=== PATIENT | female | born 1950 | race Caucasian/White ===

== ENCOUNTER → 2023-11-02 13:30 | Outpatient (REF) | payer MEDICARE, OTHER, SELFPAY ==
[2023-11-02 14:39] LABS: ALT (SGPT) 16 U/L (0-35); AST (SGOT) 34 U/L (14-36); Alkaline Phosphatase 69 U/L (38-126); Blood Urea Nitrogen 13 mg/dl (7-17); Calcium 9.2 mg/dl (8.4-10.2); Carbon Dioxide 29 mmol/L (22-30); Chloride 101 mmol/L (98-107); Glucose 90 mg/dl (70-99); HDL Cholesterol 90 mg/dl; LDL Cholesterol, Calculated 104 mg/dl; Potassium 4.3 mmol/L (3.5-5.1); Sodium 134 mmol/L (135-145); Total Bilirubin 0.9 mg/dl (0.2-1.3); Total Cholesterol 206 mg/dl (50-199); Total Protein 6.7 g/dl (6.3-8.2); Triglyceride 61 mg/dl (10-149); Very Low Density Lipoprotein 12 mg/dl (0-30); eGFR > 60.00
[2023-11-02 15:09] LABS: TSH Reflex To Free T4 2.58 uIU/ml (0.47-4.68)
== END ==
LOC: REG 13:30
PROVIDERS: ATTENDING PHYSICIAN Family Medicine
DX: E03.9 Hypothyroidism, unspecified (principal); I10 Essential (primary) hypertension; E78.00 Pure hypercholesterolemia, unspecified
CPT/HCPCS: 36415; 80053; 80061; 84443

== ENCOUNTER → 2023-11-04 14:03 | Outpatient (REF) | payer MEDICARE, OTHER, SELFPAY ==
[2023-11-04 14:42] LABS: % Basophils 1.6 % (0-2); % Immature Granulocytes 0.2 % (0-0.5); % Lymphocytes 33.5 % (20.5-51.1); % Monocytes 12.4 % (1.7-9.3); % Neutrophils 47.3 % (42.2-75.2); Absolute Basophils 0.1 10^3/uL (0-0.2); Absolute Eosinophils 0.3 10^3/uL (0-0.7); Absolute Lymphocytes 1.7 10^3/uL (1.2-3.4); Absolute Monocytes 0.6 10^3/uL (0.1-0.6); Absolute Neutrophils 2.4 10^3/uL (1.4-6.5); Hematocrit 37.3 % (37.0-47.0); Hemoglobin 12.3 g/dL (12.0-16.0); Mean Corpuscular Hgb 30.6 pg (27.0-31.0); Mean Corpuscular Volume 92.8 fL (81.0-99.0); Mean Platelet Volume 9.9 fL (7.4-10.4); Nucleated Red Blood Cells % 0 %; Platelet Count 249 10^3/uL (130-400); Red Blood Cell Count 4.02 10^6/uL (4.20-5.40); Red Cell Dist. Width 14.5 % (11.5-14.5)
[2023-11-04 15:02] LABS: Erythrocyte Sed Rate 4 mm/hour (0-20)
== END ==
LOC: REG 14:03
PROVIDERS: ATTENDING PHYSICIAN Family Medicine
DX: M25.511 Pain in right shoulder (principal); M25.512 Pain in left shoulder; D50.8 Other iron deficiency anemias; M25.50 Pain in unspecified joint
CPT/HCPCS: 36415; 73030; 85025; 85652; 86140

== ENCOUNTER → 2023-11-07 19:05 | Outpatient (REF) | payer MEDICARE, OTHER, SELFPAY | LOC: WDC 19:05 | PROVIDERS: ATTENDING PHYSICIAN Family Medicine | DX: Z12.31 Encounter for screening mammogram for malignant neoplasm of breast (principal) | CPT/HCPCS: 77063; 77067 ==

== ENCOUNTER → 2023-12-08 13:08 | Outpatient (REF) | payer MEDICARE, OTHER, SELFPAY | LOC: RAD 13:08 | PROVIDERS: ATTENDING PHYSICIAN Physician Assistant | DX: K59.00 Constipation, unspecified (principal); R07.81 Pleurodynia | CPT/HCPCS: 71046; 74019 ==

== ENCOUNTER → 2025-03-11 13:08 | Outpatient (REF) | payer MEDICARE, OTHER, SELFPAY ==
[2025-03-11 15:17] LABS: ALT (SGPT) 15 U/L (0-35); AST (SGOT) 29 U/L (14-36); Albumin 4.1 g/dl (3.5-5.0); Alkaline Phosphatase 61 U/L (38-126); Blood Urea Nitrogen 11 mg/dl (7-17); Calcium 9.3 mg/dl (8.4-10.2); Carbon Dioxide 27 mmol/L (22-30); Chloride 106 mmol/L (98-107); Glucose 85 mg/dl (70-99); HDL Cholesterol 80 mg/dl; LDL Cholesterol, Calculated 112 mg/dl; Potassium 3.9 mmol/L (3.5-5.1); Sodium 140 mmol/L (135-145); Total Bilirubin 0.8 mg/dl (0.2-1.3); Total Cholesterol 203 mg/dl (50-199); Total Protein 6.8 g/dl (6.3-8.2); Triglyceride 59 mg/dl (10-149); Very Low Density Lipoprotein 11 mg/dl (0-30); eGFR > 60.00
== END ==
LOC: REG 13:08
PROVIDERS: ATTENDING PHYSICIAN Family Medicine
DX: E78.00 Pure hypercholesterolemia, unspecified (principal); I10 Essential (primary) hypertension; R79.9 Abnormal finding of blood chemistry, unspecified; D50.8 Other iron deficiency anemias
CPT/HCPCS: 36415; 80053; 80061

== ENCOUNTER → 2025-05-09 15:23 | Outpatient (REF) | payer MEDICARE, OTHER, SELFPAY | LOC: REG 15:23 | PROVIDERS: ATTENDING PHYSICIAN Family Medicine | DX: E03.9 Hypothyroidism, unspecified (principal) | CPT/HCPCS: 36415; 84443 ==

== ENCOUNTER → 2025-06-07 13:57 | Outpatient (REF) | payer MEDICARE, OTHER, SELFPAY | LOC: RAD 13:57 | PROVIDERS: ATTENDING PHYSICIAN Nurse Practitioner Family; FAMILY PHYSICIAN Family Medicine | DX: M54.16 Radiculopathy, lumbar region (principal) | CPT/HCPCS: 72110 ==

== ENCOUNTER 2025-06-16 05:36 | Emergency (ER) | payer MEDICARE, OTHER, SELFPAY ==
[2025-06-16 05:37] VITALS: BP 166/86
[2025-06-16 05:53] VITALS: BMI 24.4
[2025-06-16 07:55] VITALS: BP 116/77
--- NOTE | 2025-06-16 08:08 | EDRN ---
Ramy GOULD in room w/ pt at this time.
--- NOTE | 2025-06-16 08:11 | ED.GENMED ---
History of Present Illness
General
Chief Complaint: Back Pain
Source: patient
Exam Limitations: none
Time Seen by Provider: 06/16/25 08:00
Nursing documentation reviewed up to this point in time: agreed with
History of Present Illness
History of Present Illness:
pt is a 75-year-old female with a history of hypertension and hypothyroidism presents for right sided buttock pain shooting down her right leg over the last 2 weeks. Patient had no initiating trauma or lifting or prolonged sitting. She says she
has never had anything like this before this began.
She went to her primary care doctor around 9�5 and had imaging order for lumbar spine x-ray which she did have but she does not know what the results. She was also given a Medrol Dosepak, muscle relaxers which did not help. She completed this and
ended up calling the office yesterday and was called in tramadol, told to take 25 mg twice a day, she is taken 3 doses without any relief. Patient says she cannot sit and changing position is very uncomfortable. She also has been constipated over
the last week or so prior to the use of the tramadol and she used an [id number] stool softener as well as 1 dose of Dulcolax and did a bowel movement 2 days ago but she says it was a little bit difficult. She does not normally get
constipated. Patient's not sleeping very well, she feels better up and standing rather than sitting or laying. She has no reported numbness or tingling in her leg, there is no weakness, there is no bowel or bladder incontinence or perineal
anesthesia. There is no fevers or urinary discomfort, frequency etc.
Past History
Past History
ED Past Medical History: HTN and Hypothyroidism
ED Past Surgical History: None and Other (Scar tissue removed from right breast)
Patient has exhibited threatening behavior?: No
PSI?: No
Social History
Tobacco: Non-smoker
Alcohol: None
Drug: None
Employment: Retired
Review of Systems
Review of Systems
Allergies reviewed?: Yes
All Other Systems: Not applicable
Phy Exam
Physical Exam
Physical Exam:
GENERAL: Alert , pacing, anxious
HEAD: NCAT
NECK: no midline tenderness, active ROM intact, no paraspinal muscle tenderness;
CARDIAC: Regular rate and rhythm, no edema
LUNGS: Clear breath sounds bilaterally, no acute respiratory distress, no wheezes/rales/rhonchi
ABDOMEN: Soft, without focal tenderness, no r/g, no cvat, normal bowel sounds, nondistended
NEUROLOGICAL: Alert and oriented, no focal neuro deficits, CN intact, 5/5 strength, sensation intact, ambulation slight limp left leg
SKIN: Warm and dry,
MUSCULOSKELETAL: No edema, well perfused. Normal inspection of the right hip, right leg
Patient has no tenderness to palpation of the hip, no exact SI joint tenderness, she has some tenderness posteriorly in the hip and low buttocks region without any skin changes.
He has no pain with flexion of the left hip, external rotation, but with internal rotation has discomfort
The most discomfort the patient had was with internal and external rotation of the hip with hip flexed
Back: No midline tenderness, no paraspinal muscle tenderness, patient had a difficult time actually cooperating with straight leg raise because she was assisting the examiner but seem to have no radicular symptoms
negative straight leg raise Bilaterally
Knees normal
PSYCH: Normal and appropriate interaction.
Course
Orders/Labs/Results
Orders:
Orders
06/16/25 08:24
HYDROmorphone [Dilaudid] 0.25 mg IV NOW STA
Ketorolac [Toradol] 15 mg IV NOW STA
Hip, Right 2-3 Views [CR Hip - RT w/wo Pel 2-3 Vw*] Urgent
Comment:
Reason For Exam: R SI and hip pain
Include a pelvis x-ray?: Yes
Obstruct Series W/PA Chest [CR Obstruct Series W/pa Chest] Urgent
Comment:
Reason For Exam: constipation
06/16/25 08:33
Complete Blood Count/With Diff Urgent
06/16/25 09:12
Comprehensive Metabolic Panel Urgent
06/16/25 10:06
Hydrocodone 5/APAP 325 [[place] 5/325] 1 tablet PO NOW STA
Abnormal Lab Results
06/16/25 06/16/25
08:33 09:12
Absolute Monos (auto) 0.7 H 10^3/uL
(0.1-0.6)
Immature Gran % 0.6 H %
(0-0.5)
Monocytes % 9.9 H %
(1.7-9.3)
Chloride 109 H mmol/L
(98-107)
BUN 23 H mg/dl
(7-17)
06/16/25 08:33
06/16/25 09:12
Vital Signs
Initial and Last Documented VS:
Initial Vital Signs
Temp Pulse Resp BP Pulse Ox
36.3 C 78 26 166/86 98
06/16/25 05:37 06/16/25 05:37 06/16/25 05:37 06/16/25 05:37 06/16/25 05:37
Last Documented Vital Signs
Temp Pulse Resp BP Pulse Ox
36.3 C 62 16 122/65 92
06/16/25 05:37 06/16/25 10:00 06/16/25 10:00 06/16/25 10:00 06/16/25 10:00
MDM/Problems Addressed
Differential Diagnosis Includes:
Constipation, sciatica, hip bursitis, arthritis, radiculopathy
MDM/Problems Addressed:
75-year-old female with a history of hypertension and hypothyroidism presents for 2 weeks of right sided buttock pain radiating down the back of her right leg to her ankle at times. She has a lot of pain with sitting and changing position. She is
able to have relief of pain with standing and walking, saying that most of her pain is overnight and while lying down and early in the morning but when she gets moving it feels much better. She saw her family doctor 2 weeks ago and was given a
prescription for an x-ray which she had of her lumbar spine showing L5-S1 degenerative disc disease and anterolisthesis of L5 on S1. She was given a Medrol Dosepak and a muscle relaxer had no relief from that and yesterday called the family doctor
and was given tramadol which she took 3 total tablets of 25 mg without relief.
She has also been constipated but was able to move her bowels after dose of Dulcolax.
On exam she is quite anxious, standing and pacing in the room, she seems to have most discomfort with seated position and full flexion of her right hip with internal/external rotation. She has not overly tender in her SI joint and more has
tenderness at the top of her hamstring
Patient had negative straight leg raise, normal strength and sensation and no signs of cauda equina syndrome.
Her abdomen is soft and nontender.
I do believe she has pain from musculoskeletal cause like sciatica
I did offer her another round of steroids but at a higher dose which she declined. She has no contraindications to taking short course of NSAIDs so she would prefer to do that.
I did give her IV Toradol and Dilaudid here with a low dose of the Dilaudid which did not seem to affect her adversely however she still in some pain with full flexion of her hip.
X-rays of her hip and abdomen were independently reviewed by me and negative for any fracture, she does not have significant DJD. She does have moderate stool in her colon without obstruction.
I will recommend MiraLAX twice daily for 2 to 3 days for that especially while she is on opiate. Increase her to Vicodin every 6 as needed, lidocaine patches and NSAIDs.
Patient already has an outpatient prescription for physical therapy
despite saing she had difficulty getting up even after shaista meds, i watched her stand and she was up easily without obvious discomfort; i do feel that she is improved enough to trial outpatietn home
*Pulse Oximetry
SaO2: 100
Oxygen Mode of Delivery: Room air
Patient hypoxic: no
*Critical Care Note
Total Time (30-74mins, 75-104mins- exclusive of procedures): Not Applicable
ED Attending Note
-
Portions of this chart may have been created with voice recognition software.� Occasional wrong word or��sound alike� substitutions may have occurred due to the inherent limitations of voice recognition software.
Discharge Plan
Departure
Patient Disposition: Home (Routine Discharge)
Date of Disposition: 06/16/25
Time of Disposition: 10:48
Patient with high blood pressure during this ER visit?: No
Condition: Fair
Discharge Problem:
Sciatica
Instructions: Sciatica (DC)
Prescriptions:
New
naproxen sodium 275 mg tablet
275 mg PO BID Qty: 10 0RF
hydrocodone-acetaminophen 5-325 mg tablet
1 tab PO Q8H PRN (Reason: Pain) Qty: 12 0RF
lidocaine 5 % adhesive patch,medicated
1 patch topical DAILY PRN (Reason: PAIN) Qty: 15 0RF
No Action
alendronate 70 mg Tablet
70 mg PO QWEEK
amlodipine 10 mg Tablet
10 mg PO HS
levothyroxine [Euthyrox] 50 mcg Tablet
50 mcg PO DAILY
lisinopril 40 mg Tablet
40 mg PO HS
cranberry fruit 400 mg Capsule
400 mg PO DAILY
aspirin 81 mg Tablet
81 mg PO DAILY
Multivitamin Women 50 Plus 8 mg iron-400 mcg-300 mcg Tablet
1 tab PO DAILY
biotin 1 mg Capsule
1 mg PO DAILY
naproxen sodium [Aleve] 220 mg capsule
440 mg PO BID PRN (Reason: pain) 7 Days Qty: 14 0RF
acetaminophen [Acetaminophen Extra Strength] 500 mg tablet
500 mg PO Q6H PRN (Reason: pain) Qty: 10 0RF
Referrals:
Rea Keating MD [Family Provider, [facility]] - Follow up in 2-3 days
Activity Restrictions/Additional Instructions:
Your back and hip pain is probably from SI joint inflammation causing some sciatic nerve pain. Try Aleve twice a day with food for 3 to 5 days in a row to help with inflammation. Additionally for pain you can take Vicodin which has Tylenol in it
every 8 hours, that is 3 times a day. No drinking or driving on this medication. He can make you sleepy. You can also increase constipation so you should try MiraLAX twice a day for 2 to 3 days to help with your constipation. Your x-rays did not
show any significant findings but if the radiologist disagrees we will call you with results. You should follow-up with family doctor for physical therapy
Return for leg weakness, leg numbness, incontinence, fever or chills, inability to walk, swelling or redness to your hip or any concern
Also you can apply lidocaine patch to your back or buttocks and leave on for 12 hours, remove for 12 hours and when the patch is off you can use heat or ice
Interventions
Interventions:
*Risk Screen - Suicide Last Done: 06/16/25 05:37
*General Assessment Last Done: 06/16/25 05:53
*Neglect/Abuse Screening Last Done: 06/16/25 05:37
*ED- Fall Risk Assessment Last Done: 06/16/25 05:53
*ED COVID-19 Vaccine History Last Done: 06/16/25 05:53
*Nursing Disposition Last Done: 06/16/25 11:07
ZH-Adtkxx-Nekybuhqai Assessment Last Done: 06/16/25 05:59
ED-Musculoskeletal Assessment Last Done: 06/16/25 05:53
Discharge Date and Time
Discharge Date/Time: 06/16/25 11:07
Print Language: SYRIAC
[2025-06-16 08:34] VITALS: BP 114/53
[2025-06-16] MEDS: DILAUDID 0.25 MG IV (08:37)
[2025-06-16] MEDS: TORADOL 15 MG IV (08:37)
[2025-06-16 08:44] LABS: Hematocrit 40.4 % (37.0-47.0); Hemoglobin 13.6 g/dL (12.0-16.0); Mean Corp Hgb Conc. 33.7 g/dL (33.0-37.0); Mean Corpuscular Volume 90.6 fL (81.0-99.0); Nucleated Red Blood Cells % 0 %; Platelet Count 269 10^3/uL (130-400); Red Cell Dist. Width 14.0 % (11.5-14.5)
[2025-06-16 09:14] VITALS: BP 135/62
--- NOTE | 2025-06-16 09:14 | EDRN ---
SST blood tube hemolyzed so redrawn and sent to lab at this time.
[2025-06-16 09:23] VITALS: BP 135/60
[2025-06-16 09:31] LABS: ALT (SGPT) 16 U/L (0-35); AST (SGOT) 28 U/L (14-36); Albumin 3.9 g/dl (3.5-5.0); Alkaline Phosphatase 53 U/L (38-126); Blood Urea Nitrogen 23 mg/dl (7-17); Calcium 9.0 mg/dl (8.4-10.2); Carbon Dioxide 28 mmol/L (22-30); Chloride 109 mmol/L (98-107); Estimated Creatinine Clearance 48 ml/min; Glucose 93 mg/dl (70-99); Potassium 4.0 mmol/L (3.5-5.1); Sodium 141 mmol/L (135-145); Total Protein 6.4 g/dl (6.3-8.2); eGFR > 60.00
[2025-06-16 10:00] VITALS: BP 122/65
--- NOTE | 2025-06-16 10:01 | EDRN ---
Ramy GOULD in room w/ pt at this time.
[2025-06-16] MEDS: NORCO 5/325 1 TABLET PO (10:22)
--- NOTE | 2025-06-16 10:59 | EDRN ---
Ramy GOULD in w/ pt at this time.
== END 2025-06-16 11:07 | disposition home or self-care (01) ==
LOC: EMR 05:36
PROVIDERS: Physician Assistant; EMERGENCY PHYSICIAN Emergency Medicine; FAMILY PHYSICIAN Family Medicine
DX: M54.31 Sciatica, right side (principal); K59.00 Constipation, unspecified; I10 Essential (primary) hypertension; E03.9 Hypothyroidism, unspecified; M51.379 Other intervertebral disc degeneration, lumbosacral region without mention of lumbar back pain or lower extremity pain; M43.17 Spondylolisthesis, lumbosacral region
CPT/HCPCS: 99284; 96374; 96375; 73502; 74022; 80053; 85025

== ENCOUNTER → 2025-06-20 13:39 | Outpatient (REF) | payer MEDICARE, OTHER, SELFPAY | LOC: RAD 13:39 | PROVIDERS: ATTENDING PHYSICIAN Nurse Practitioner Family; FAMILY PHYSICIAN Family Medicine | DX: M81.0 Age-related osteoporosis without current pathological fracture (principal) | CPT/HCPCS: 77080 ==

== ENCOUNTER 2025-07-19 23:00 | Emergency (ER) | payer MEDICARE, OTHER, SELFPAY ==
[2025-07-19 23:04] VITALS: BP 138/65
[2025-07-20 03:03] VITALS: BP 139/56; BMI 22.4
[2025-07-20] MEDS: PERCOCET 5/325 1 TABLET PO (04:03)
[2025-07-20] MEDS: TORADOL 30 MG IM (04:04)
[2025-07-20 04:05] VITALS: BP 132/86
--- NOTE | 2025-07-20 04:11 | ED.GENMED ---
History of Present Illness
General
Chief Complaint: Fall
Source: patient
Exam Limitations: none
Time Seen by Provider: 07/20/25 03:42
Nursing documentation reviewed up to this point in time: agreed with
History of Present Illness
History of Present Illness:
75-year-old female with history as noted presents to the ER for evaluation of rib and hip pain after a fall. Patient reports that she had a mechanical trip and fall this evening landing on her left side. She says she has had some pain in her left
ribs as well as in her left hip since the fall which prompted ER visit. She denies any head strike or loss of consciousness. Denies headache or neck pain. She denies back pain. She denies abdominal pain. She does have chronic pain in her right
leg from sciatica but no other acute issues today. She is not on any blood thinners.
Past History
Past History
ED Past Medical History: HTN and Hypothyroidism
ED Past Surgical History: None and Other (Scar tissue removed from right breast)
Patient has exhibited threatening behavior?: No
PSI?: No
Social History
Tobacco: Non-smoker
Alcohol: None
Drug: None
Employment: Retired
Review of Systems
Review of Systems
All Other Systems: ROS reviewed and negative except as documented in HPI and ROS
Respiratory: Denies trouble breathing
Cardiac: Reports chest pain
ABD/GI: Denies abdominal pain, nausea or vomiting
: Denies flank pain
Musculoskeletal: Reports joint pain; Denies neck pain or back pain
Neurological: Denies headache
Phy Exam
Physical Exam
Physical Exam:
General: Awake, alert, oriented x3; no acute distress
Head: Normocephalic, atraumatic
Eyes: Conjunctiva normal, pupils equal round reactive to light bilaterally
Throat: Airway intact, handling secretions
Neck: Trachea midline, no cervical spine tenderness
Back: No signs of trauma to the back or flank and no tenderness in the thoracic or lumbar spine
Lungs: Clear to auscultation bilaterally, no wheezing, rales, rhonchi
Heart: Regular rate and rhythm, no murmurs, gallops, or rubs; patient has some mild tenderness in the left anterior ribs but no crepitus or bruising
Abd: Soft, non distended, nontender
Neuro: Grossly intact, ambulatory here in the ER
Skin: Patient has mild ecchymosis to the left hip
Extremities: Patient has mild ecchymosis to the left lateral hip over the greater trochanter and mild tenderness in this area but full passive range of motion with minimal pain, no tenderness of the lower leg and the left, rest extremities appear
atraumatic
Scores
Heart Failure Risk
Heart Failure Risk Score: Not Applicable
Heart Score for Chest Pain Patients
STEMI patient?: Not applicable
Withdrawal Assessment of Alcohol
Withdrawal Assessment Completed?: Not applicable
Course
Orders/Labs/Results
Orders:
Orders
07/19/25 23:11
CR Ribs-left 3 Vw W/pa Chest Urgent
Comment:
Reason For Exam: injury
Femur, Left 2 View [CR Femur - Left Min 2 Vw] Urgent
Comment:
Reason For Exam: injury
07/20/25 03:58
Ketorolac [Toradol] 30 mg IM NOW STA
Oxycodone/Acetaminophen [Percocet 5/325] 1 tablet PO NOW STA
Vital Signs
Initial and Last Documented VS:
Initial Vital Signs
Temp Pulse Resp BP Pulse Ox
36.5 C 71 20 138/65 97
07/19/25 23:04 07/19/25 23:04 07/19/25 23:04 07/19/25 23:04 07/19/25 23:04
Last Documented Vital Signs
Temp Pulse Resp BP Pulse Ox
36.6 C 66 16 139/56 99
07/20/25 03:03 07/20/25 03:03 07/20/25 03:03 07/20/25 03:03 07/20/25 03:03
MDM/Problems Addressed
Differential Diagnosis Includes:
Rib pain: Bruised ribs, broken ribs, hemothorax, pneumothorax
Hip pain: Contusion, fracture, dislocation
MDM/Problems Addressed:
75-year-old female with history as noted presents for evaluation after a fall. Complaining of left rib pain and left hip pain. Vitals and exam as above. Fortunately no head trauma. Not on blood thinners. X-rays of the ribs and femur performed
and reviewed by issa rib fractures noted, no hemothorax or pneumothorax. No fracture of the hip or femur noted. Suspect bruised ribs with left hip contusion. She is ambulatory here. Stable for discharge to follow-up with PCP. We spoke about
pain control, all questions answered.
*Radiology
Radiology exam reviewed: preliminary read by ED provider
*Pulse Oximetry
SaO2: 99
Oxygen Mode of Delivery: Room air
Patient hypoxic: no (99%)
*Critical Care Note
Total Time (30-74mins, 75-104mins- exclusive of procedures): Not Applicable
Data Reviewed
Source: patient and family
ED Attending Note
-
Portions of this chart may have been created with voice recognition software.� Occasional wrong word or��sound alike� substitutions may have occurred due to the inherent limitations of voice recognition software.
Discharge Plan
Departure
Patient Disposition: Home (Routine Discharge)
Date of Disposition: 07/20/25
Time of Disposition: 04:10
Patient with high blood pressure during this ER visit?: No
Discharge Problem:
Bruised ribs, Contusion of hip
Instructions: Contusion (DC), Rib fracture or bruised rib - ED (DC)
Prescriptions:
New
hydrocodone-acetaminophen 5-325 mg tablet
1 tab PO BID PRN (Reason: Pain) Qty: 7 0RF
No Action
amlodipine 10 mg Tablet
10 mg PO HS
levothyroxine [Euthyrox] 50 mcg Tablet
50 mcg PO DAILY
lisinopril 40 mg Tablet
40 mg PO HS
cranberry fruit 400 mg Capsule
400 mg PO DAILY
Multivitamin Women 50 Plus 8 mg iron-400 mcg-300 mcg Tablet
1 tab PO DAILY
biotin 1 mg Capsule
1 mg PO DAILY
hydrocodone-acetaminophen 5-325 mg tablet
1 tab PO Q8H PRN (Reason: Pain) Qty: 12 0RF
lidocaine 5 % adhesive patch,medicated
1 patch topical DAILY PRN (Reason: PAIN) Qty: 15 0RF
Referrals:
Rea Keating MD [Family Provider, [facility]] - Follow up in 5-7 days
Activity Restrictions/Additional Instructions:
Thank you for visiting the Emergency Department at [facility].
1. Please schedule a follow up appointment as directed. Call first thing tomorrow morning to make an appointment.
2. If indicated, please take your medications as instructed and indicated on discharge paperwork.
3. If any of your symptoms do not improve, or persist, or become more severe within 6-12 hours, please return to the emergency department for further care.
4. Please return to the emergency department if you develop a headache, neck pain/stiffness, fever greater than 100.4F, chest pain, shortness of breath, persistent nausea, vomiting, slurred speech, difficulty walking, numbness/tingling, weakness,
signs of infection or any other symptoms that are worrisome to you.
Please call [phone] if you have any questions.
Interventions
Interventions:
*Risk Screen - Suicide Last Done: 07/19/25 23:04
*General Assessment Last Done: 07/19/25 23:04
*Neglect/Abuse Screening Last Done: 07/19/25 23:04
*ED- Fall Risk Assessment Last Done: 07/19/25 23:04
*ED COVID-19 Vaccine History Last Done: 07/19/25 23:04
*ED Influenza Vaccine History Last Done: 07/19/25 23:04
ED-Musculoskeletal Assessment Last Done: 07/20/25 03:03
ED- Neurological Assessment Last Done: 07/20/25 03:03
ED-Skin Assessment Last Done: 07/20/25 03:03
Discharge Date and Time
Print Language: BURKIN[place]
== END 2025-07-20 04:17 | disposition home or self-care (01) ==
LOC: EMR 23:00
PROVIDERS: EMERGENCY PHYSICIAN Emergency Medicine; FAMILY PHYSICIAN Family Medicine
DX: S20.212A Contusion of left front wall of thorax, initial encounter (principal); S70.02XA Contusion of left hip, initial encounter; W01.0XXA Fall on same level from slipping, tripping and stumbling without subsequent striking against object, initial encounter; I10 Essential (primary) hypertension; E03.9 Hypothyroidism, unspecified; M54.31 Sciatica, right side
CPT/HCPCS: 99284; 96372; 71101; 73552

== ENCOUNTER → 2025-09-07 10:51 | Outpatient (REF) | payer MEDICARE, OTHER, SELFPAY ==
[2025-09-07 12:54] LABS: ALT (SGPT) 15 U/L (0-35); AST (SGOT) 25 U/L (14-36); Albumin 4.0 g/dl (3.5-5.0); Alkaline Phosphatase 51 U/L (38-126); Blood Urea Nitrogen 19 mg/dl (7-17); Calcium 9.1 mg/dl (8.4-10.2); Carbon Dioxide 27 mmol/L (22-30); Chloride 110 mmol/L (98-107); Glucose 80 mg/dl (70-99); Potassium 4.1 mmol/L (3.5-5.1); Sodium 141 mmol/L (135-145); Total Protein 6.5 g/dl (6.3-8.2); eGFR > 60.00
== END ==
LOC: REG 10:51
PROVIDERS: ATTENDING PHYSICIAN Family Medicine
DX: Z79.899 Other long term (current) drug therapy (principal)
CPT/HCPCS: 36415; 80053